=== PATIENT | female | born 1990 | race African-American/Black ===

== ENCOUNTER 2016-07-25 20:32 | Emergency (ER) | payer OTHER | END 2016-07-25 22:33 | disposition home or self-care (01) | LOC: CED 20:32 | DX: R51 Headache (principal) | CPT/HCPCS: 96361; 96374; 96375; 99284; J1200; J1885; J2765 ==

== ENCOUNTER 2016-10-11 00:52 | Emergency (ER) | payer OTHER ==
[~2016-10-11] VITALS: Ht 162.6 cm; Wt 57.1 kg
== END 2016-10-11 02:30 | disposition home or self-care (01) ==
LOC: CED 00:52
DX: S05.11XA Contusion of eyeball and orbital tissues, right eye, initial encounter (principal); E11.9 Type 2 diabetes mellitus without complications; W20.8XXA Other cause of strike by thrown, projected or falling object, initial encounter; Y93.89 Activity, other specified; Y92.69 Other specified industrial and construction area as the place of occurrence of the external cause
CPT/HCPCS: 99283

== ENCOUNTER 2016-11-01 03:16 | Emergency (ER) | payer OTHER ==
[~2016-11-01] VITALS: Ht 165.1 cm; Wt 59.0 kg
[2016-11-01 03:50] LABS: URINE SOURCE CLEAN CATCH
[2016-11-01 03:57] LABS: URINE APPEARANCE CLOUDY; URINE BILIRUBIN NEG (NEG); URINE BLOOD 3+ (NEG); URINE COLOR YELLOW; URINE GLUCOSE NEG (NEG); URINE KETONE NEG (NEG); URINE LEUKOCYTE ESTERASE 2+ (NEG); URINE NITRATE NEG (NEG); URINE PH 5.5 (5-8); URINE PROTEIN 2+ (NEG)
[2016-11-01 03:59] LABS: CULTURE INDICATED? YES; URBCS1 AUWI 100-200 /[HPF] (0-2); URINE BACTERIA AUWI 1+ (NEGATIVE); URINE SQUAMOUS EPITHELIAL CELL OCC /[HPF]; UWBCS1 AUWI 100-200 (0-5)
== END 2016-11-01 04:52 | disposition home or self-care (01) ==
LOC: CED 03:16
PROVIDERS: Nurse Practitioner
DX: N39.0 Urinary tract infection, site not specified (principal)
CPT/HCPCS: 81003; 84703; 87086; 99283

== ENCOUNTER 2016-11-29 01:22 | Emergency (ER) | payer OTHER ==
[~2016-11-29] VITALS: Ht 162.6 cm; Wt 68.0 kg
== END 2016-11-29 04:05 | disposition left against medical advice (07) ==
LOC: CED 01:22
DX: Z53.21 Procedure and treatment not carried out due to patient leaving prior to being seen by health care provider (principal)
CPT/HCPCS: 84703; 87651